=== PATIENT | male | born 1970 | race Caucasian/White ===

== ENCOUNTER 2018-03-09 14:02 | Emergency (ER) | payer MEDICARE ==
[~2018-03-09] VITALS: Ht 177.8 cm; Wt 88.5 kg
[~2018-03-09 14:02] MED LIST: ALBUTEROL0.09 MG/A2; ALBUTEROL0.09 MG/A2 IH; ALLEGRA180 MG PO; AMOXICILLIN500 MG PO; AMOXIL500 MG PO; ANAPROX DS550 MG PO; ANUSOL1 EACH RC; AUGMENTIN 875 M1 TAB PO; AUGMENTIN 875875 MG PO; AVELOX400 MG PO; CLARITIN10 MG PO; CLINDAMYCIN HC300 MG PO; CLINDAMYCIN150 MG PO; CORTISPORIN 1%-10 M1 OT; DAYPRO600 M1 PO; DONNATAL1 TAB PO; FLEXERIL10 MG PO; FLEXERIL5 MG PO; FLOVENT 110 M110 MCG INH; HYDROCODONE BIT1 T11 PO; KEFLEX500 MG PO; MOTRIN600 MG PO; MOTRIN800 MG PO; NAPROSYN500 MG PO; Orphenadrine C100 MG PO; PEN-VEE K500 MG PO; PENICILLIN VK500 MG PO; ROBAXIN750 MG PO; SALETO800 MG PO; TRAMADOL HCL50 MG PO; TRIMOX500 MG PO; ULTRAM50 MG PO; VICODIN 5/500 505 MG PO; VOLTAREN50 M1 PO; XANAX0.5 MG PO; XANAX1 MG; ZITHROMAX Z PA250 MG PO
[2018-03-09] MEDS ORDERED: CYCLOBENZAPRINE10 MG PO (14:43)
[2018-03-09] MEDS ORDERED: IBU800 MG PO (14:43)
== END 2018-03-09 16:38 | disposition home or self-care (01) ==
LOC: ED 14:02
DX: S16.1XXA Strain of muscle, fascia and tendon at neck level, initial encounter (principal); Z88.1 Allergy status to other antibiotic agents; Z88.8 Allergy status to other drugs, medicaments and biological substances; V43.52XA Car driver injured in collision with other type car in traffic accident, initial encounter; Y93.89 Activity, other specified; Y92.89 Other specified places as the place of occurrence of the external cause; Y99.8 Other external cause status

== ENCOUNTER 2018-03-12 16:43 | Emergency (ER) | payer MEDICARE ==
[~2018-03-12] VITALS: Ht 177.8 cm; Wt 88.5 kg
[~2018-03-12 16:43] MED LIST changes: +CYCLOBENZAPRINE10 MG PO; +IBU800 MG PO
== END 2018-03-12 17:34 | disposition home or self-care (01) ==
LOC: ED 16:43
DX: J02.9 Acute pharyngitis, unspecified (principal); Z88.8 Allergy status to other drugs, medicaments and biological substances; Z88.1 Allergy status to other antibiotic agents; Z79.899 Other long term (current) drug therapy

== ENCOUNTER 2018-03-15 16:41 | Emergency (ER) | payer MEDICARE ==
[~2018-03-15] VITALS: Ht 177.8 cm; Wt 88.5 kg
== END 2018-03-15 18:55 | disposition home or self-care (01) ==
LOC: ED 16:41
DX: R51 Headache (principal); Z88.1 Allergy status to other antibiotic agents; Z88.8 Allergy status to other drugs, medicaments and biological substances; Z79.899 Other long term (current) drug therapy

== ENCOUNTER 2019-06-28 10:03 | Emergency (ER) | payer MEDICARE ==
[~2019-06-28] VITALS: Ht 177.8 cm; Wt 90.7 kg
== END 2019-06-28 11:10 | disposition home or self-care (01) ==
LOC: ED 10:03
DX: J45.909 Unspecified asthma, uncomplicated (principal); R04.2 Hemoptysis; K21.9 Gastro-esophageal reflux disease without esophagitis; Z88.1 Allergy status to other antibiotic agents; Z88.8 Allergy status to other drugs, medicaments and biological substances

== ENCOUNTER 2019-09-30 20:22 | Emergency (ER) | payer MEDICARE ==
[~2019-09-30] VITALS: Ht 177.8 cm; Wt 87.5 kg
[2019-09-30 21:01] LABS: BASO % 0.7 % (0.0-1.0); EOS # 0.1 10*3/uL (0.0-0.4); EOS % 1.6 % (1.0-4.0); HEMATOCRIT 47.5 % (42.0-52.0); LYMPH # 1.6 10*3/uL (1.3-4.4); LYMPH % 26.5 % (27.0-41.0); MEAN CELL VOLUME 83.8 fl (80.0-94.0); MEAN CORPUSCULAR HGB CONC 33.5 g/dl (33.0-37.0); MEAN PLATELET VOLUME 9.7 fl (9.6-12.3); MONO # 0.5 10*3/uL (0.1-1.0); MONO % 7.6 % (3.0-9.0); NEUT # 3.8 10*3/uL (2.3-7.9); NEUT % 63.3 % (47.0-73.0); PLATELET COUNT AUTOMATED 261 10*3/uL (130-400); RED BLOOD COUNT 5.67 10*6/uL (4.50-5.90); RED CELL DISTRI WIDTH 12.3 % (0-14.5); WHITE BLOOD COUNT 6.1 10*3/uL (4.8-10.8)
[2019-09-30 21:17] LABS: ALBUMIN 4.1 gm/dl (3.1-4.5); ALKALINE PHOSPHATASE 108 U/L (45-117); BUN 12 mg/dl (7-24); CHLORIDE 106 mmol/L (98-107); CREATININE 1.16 mg/dL (0.70-1.30); LIPASE 110 U/L (73-393); POTASSIUM 3.4 mmol/L (3.5-5.1); SGOT/AST 20 IU/L (3-35); SGPT/ALT 34 U/L (12-78); SODIUM 140 mmol/L (136-145); TOTAL PROTEIN 8.2 gm/dL (6.4-8.2)
[2019-09-30 21:42] LABS: BILIRUBIN NEGATIVE (NEGATIVE); BLOOD NEGATIVE (NEGATIVE); CLARITY CLEAR (CLEAR); COLOR STRAW (YELLOW); GLUCOSE NEGATIVE (NEGATIVE); KETONE NEGATIVE (NEGATIVE); SPECIFIC GRAVITY 1.005 (1.005-1.030)
[2019-09-30 21:43] LABS: LEUKO ESTERASE TRACE (NEGATIVE); NITRITE NEGATIVE (NEGATIVE); UROBILINOGEN 0.2 E.U./dl (0.2-1.0)
[2019-09-30 21:52] LABS: BACTERIA TRACE; EPITHELIAL CELLS 0-2; RBC 0-2 rbc/hpf (0-2)
== END 2019-09-30 22:44 | disposition home or self-care (01) ==
LOC: ED 20:22
PROVIDERS: Emergency Medicine
DX: M54.6 Pain in thoracic spine (principal); K21.9 Gastro-esophageal reflux disease without esophagitis; J45.909 Unspecified asthma, uncomplicated; Z88.1 Allergy status to other antibiotic agents; Z88.8 Allergy status to other drugs, medicaments and biological substances

== ENCOUNTER → 2020-06-11 | Outpatient (CLI) | payer MEDICARE | END | disposition home or self-care (01) | LOC: COVID19 09:49 | PROVIDERS: ATTEND Nurse Practitioner Family | DX: Z20.822 Contact with and (suspected) exposure to COVID-19 (principal); J02.9 Acute pharyngitis, unspecified; R05 Cough ==

== ENCOUNTER 2021-10-30 11:10 | Emergency (ER) | payer MEDICARE ==
[~2021-10-30] VITALS: Ht 177.8 cm; Wt 86.2 kg
[2021-10-30] MEDS ORDERED: CLINDAMYCIN HC300 MG PO (11:18)
== END 2021-10-30 11:36 | disposition home or self-care (01) ==
LOC: ED 11:10
DX: K04.7 Periapical abscess without sinus (principal); Z88.1 Allergy status to other antibiotic agents; Z88.8 Allergy status to other drugs, medicaments and biological substances

== ENCOUNTER 2021-11-27 16:19 | Emergency (ER) | payer MEDICARE ==
[~2021-11-27] VITALS: Ht 177.8 cm; Wt 88.5 kg
== END 2021-11-27 17:35 | disposition home or self-care (01) ==
LOC: ED 16:19
DX: M79.662 Pain in left lower leg (principal); Z88.1 Allergy status to other antibiotic agents; Z88.8 Allergy status to other drugs, medicaments and biological substances

== ENCOUNTER → 2022-02-05 | Outpatient (CLI) | payer MEDICARE | END | disposition home or self-care (01) | LOC: RAD 10:11 | PROVIDERS: ATTEND Nurse Practitioner Family | DX: R10.9 Unspecified abdominal pain (principal); M25.50 Pain in unspecified joint; Z82.69 Family history of other diseases of the musculoskeletal system and connective tissue ==

== ENCOUNTER 2022-03-06 11:07 | Emergency (ER) | payer MEDICARE ==
[~2022-03-06] VITALS: Wt 87.1 kg
[2022-03-06] MEDS ORDERED: PENICILLIN-VK500 MG PO (11:27)
== END 2022-03-06 11:28 | disposition home or self-care (01) ==
LOC: ED 11:07
DX: K04.7 Periapical abscess without sinus (principal); Z88.1 Allergy status to other antibiotic agents; Z88.8 Allergy status to other drugs, medicaments and biological substances; Z90.89 Acquired absence of other organs

== ENCOUNTER 2022-08-21 21:28 | Emergency (ER) | payer MEDICARE ==
[~2022-08-21] VITALS: Ht 177.8 cm; Wt 83.9 kg
[~2022-08-21 21:28] MED LIST changes: +PENICILLIN-VK500 MG PO
[2022-08-21] MEDS ORDERED: PENICILLIN VK500 MG PO (21:57)
== END 2022-08-21 22:20 | disposition home or self-care (01) ==
LOC: ED 21:28
DX: K02.9 Dental caries, unspecified (principal); K21.9 Gastro-esophageal reflux disease without esophagitis; F41.9 Anxiety disorder, unspecified; J45.909 Unspecified asthma, uncomplicated; F31.9 Bipolar disorder, unspecified; Z88.1 Allergy status to other antibiotic agents; Z88.8 Allergy status to other drugs, medicaments and biological substances

== ENCOUNTER 2023-04-01 15:38 | Emergency (ER) | payer MEDICARE ==
[~2023-04-01] VITALS: Wt 86.2 kg
[2023-04-01] MEDS ORDERED: PENICILLIN VK500 MG PO (17:01)
== END 2023-04-01 17:12 | disposition home or self-care (01) ==
LOC: ED 15:38
DX: K02.9 Dental caries, unspecified (principal); K21.9 Gastro-esophageal reflux disease without esophagitis; F41.9 Anxiety disorder, unspecified; F31.9 Bipolar disorder, unspecified; J45.909 Unspecified asthma, uncomplicated; Z88.8 Allergy status to other drugs, medicaments and biological substances; Z88.1 Allergy status to other antibiotic agents; Z98.890 Other specified postprocedural states